=== PATIENT | male | born 2000 | race Caucasian/White ===

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

== ENCOUNTER → 2018-11-15 | Outpatient (REF) | LOC: COL.CARD 13:05 | DX: Z01.818 Encounter for other preprocedural examination (principal) ==

== ENCOUNTER 2021-03-04 14:35 | Emergency (ER) | payer BC ==
[~2021-03-04] VITALS: Ht 182.9 cm; Wt 70.7 kg
[2021-03-04 15:10] VITALS: BP 147/94; TEMP 97.6
[2021-03-04 16:19] LABS: BASO % 0.4 % (0.0-2.0); EOS % 0.3 % (0-4.0); GRAN # 8.4 K/mm3 (1.4-6.5); GRAN % 81.3 % (42.2-75.2); HEMATOCRIT 48.6 % (42.0-52.0); HEMOGLOBIN 17.3 g/dl (13.5-18.0); LYMPH # 1.2 K/mm3 (1.2-3.4); MEAN CELL VOLUME 91 fl (80.0-100.0); MEAN CORPUSCULAR HEMOGLOBIN 33 pg (27.0-31.0); MEAN CORPUSCULAR HGB CONC 36 g/dl (33.0-37.0); MEAN PLATELET VOLUME 10.9 fl (7.4-10.4); MONO # 0.6 K/mm3 (0.1-0.6); MONO % 5.6 % (1.7-9.3); PLATELET COUNT 199 K/mm3 (130-400); RED BLOOD COUNT 5.33 M/mm3 (4.20-5.60); REDCELL DISTRIBUTION WIDTH-CV 11.7 % (11.5-14.5)
[2021-03-04 16:32] LABS: TRICYCLIC ANTIDEPRESS URINE NEGATIVE
[2021-03-04 16:47] LABS: ACETAMINOPHEN < 1.0 ug/mL (10-30); ALANINE AMINOTRANSFERASE 11 U/L (0-55); ALBUMIN 5.5 gm/dL (3.5-5.0); ALCOHOL(ethanol),MEDICAL < 10 mg/dL (0-10); ALKALINE PHOSPHATASE 64 U/L (40-150); ANION GAP 9 mmol/L (7-16); AST,SGOT 12 U/L (5-34); BILIRUBIN,TOTAL 1.2 mg/dL (0.2-1.2); BLOOD UREA NITROGEN 9 mg/dL (9-21); CALCIUM 10.7 mg/dL (8.4-10.2); CARBON DIOXIDE 29 mmol/L (22-29); CHLORIDE 103 mmol/L (98-107); GLUCOSE 101 mg/dL (70-99); POTASSIUM 3.8 mmol/L (3.5-4.5); SALICYLATE < 5.0 mg/dL (15.0-30.0); SODIUM 141 mmol/L (136-145); TOTAL PROTEIN 8.4 gm/dL (6.2-8.1)
[2021-03-04 18:11] VITALS: PULSE 77
== END 2021-03-04 18:11 | disposition home or self-care (01) ==
LOC: COL.ER 14:35
PROVIDERS: Nurse Practitioner
DX: R41.82 Altered mental status, unspecified (principal)